=== PATIENT | female | born 1985 | race Caucasian/White ===

== ENCOUNTER → 2017-10-06 | Outpatient (CLI) | payer MEDICAID | END | disposition home or self-care (01) | LOC: U/S 17:44 | DX: O20.0 Threatened abortion (principal); Z3A.01 Less than 8 weeks gestation of pregnancy | CPT/HCPCS: 76801; 76817 ==

== ENCOUNTER 2017-10-25 14:43 | Emergency (ER) | payer MEDICAID ==
[2017-10-25] MEDS: METOCLOPRAMIDE 10 MG INJ IV (16:25)
[2017-10-25] MEDS: ACETAMINOPHEN 500 MG TAB PO (16:25)
[2017-10-25] MEDS: SOD CHLORIDE 0.9% 1,000 ML IV (16:26)
[2017-10-25 16:42] LABS: ADD MAN DIFF? NO
[2017-10-25 16:46] LABS: WHITE BLOOD COUNT 12.6 10^3/ul (4.8-10.8)
[2017-10-25 16:46] LABS: BASOPHILS % 0.3 % (0.0-2.0); EOSINOPHILS # 0.2 10^3/ul (0.0-0.5); EOSINOPHILS % 1.3 % (0.0-7.0); HEMATOCRIT 39.8 % (37.0-47.0); HEMOGLOBIN 13.4 g/dl (12.0-16.0); LYMPHOCYTES % 15.9 % (15.0-51.0); MEAN CORPUSCULAR HEMOGLOBIN 28.6 pg (29.0-33.0); MEAN CORPUSCULAR HGB CONC 33.7 g/dl (32.0-37.0); MEAN CORPUSCULAR VOLUME 84.9 fl (82.0-101.0); MEAN PLATELET VOLUME 10.6 fl (7.4-10.4); MONOCYTE # 0.9 10^3/ul (0.3-0.9); MONOCYTES % 7.1 % (0.0-11.0); NEUTROPHIL # 9.5 10^3/ul (1.6-7.5); NEUTROPHILS % 75.1 % (39.0-77.0); PLATELET COUNT 296 10^3/UL (140-415); RED BLOOD COUNT 4.69 10^6/ul (4.20-5.40); RED CELL DISTRIBUTION WIDTH 12.4 % (11.5-14.5)
[2017-10-25 17:06] LABS: ALANINE AMINOTRANSFERASE 26 IU/L (13-69); ALBUMIN 4.6 g/dl (3.3-4.9); ALBUMIN/GLOBULIN RATIO 1.12; ALKALINE PHOSPHATASE 77 IU/L (42-121); AMYLASE 85 U/L (11-123); ANION GAP 16 (8-16); ASPARTATE AMINO TRANSFERASE 18 IU/L (15-46); BILIRUBIN,INDIRECT 0.2 mg/dl (0-1.1); BILIRUBIN,TOTAL 0.2 mg/dl (0.2-1.3); BLOOD UREA NITROGEN 11 mg/dl (7-20); CALCIUM 9.8 mg/dl (8.4-10.2); CARBON DIOXIDE 27 mmol/L (21-31); CHLORIDE 100 mmol/L (97-110); CREATININE 0.55 mg/dl (0.44-1.00); GLUCOSE 100 mg/dl (70-220); LIPASE 63 U/L (23-300); SODIUM 139 mmol/L (135-144); TOTAL PROTEIN 8.7 g/dl (6.1-8.1)
[2017-10-25 17:30] LABS: ADD UMIC NO; UR ASCORBIC ACID NEGATIVE (NEGATIVE); UR BILIRUBIN (Dip) NEGATIVE (NEGATIVE); UR BLOOD (Dip) NEGATIVE (NEGATIVE); UR CLARITY CLEAR (CLEAR); UR COLOR COLORLESS (YELLOW); UR GLUCOSE (Dip) NEGATIVE (NEGATIVE); UR KETONES (Dip) NEGATIVE (NEGATIVE); UR LEUKOCYTE ESTERASE (Dip) NEGATIVE Leu/ul (NEGATIVE); UR NITRITE (Dip) NEGATIVE (NEGATIVE); UR SPECIFIC GRAVITY (Dip) 1.003 (1.003-1.030); UR TOTAL PROTEIN (Dip) NEGATIVE (NEGATIVE); UR UROBILINOGEN (Dip) NEGATIVE (NEGATIVE)
== END 2017-10-25 18:16 | disposition home or self-care (01) ==
LOC: FTE 14:43
DX: O21.0 Mild hyperemesis gravidarum (principal); R10.2 Pelvic and perineal pain; Z3A.09 9 weeks gestation of pregnancy
CPT/HCPCS: 76775; 76801; 80053; 81003; 82150; 83690; 84702; 85025; 86900; 86901; 87086; 96374; 99285-25

== ENCOUNTER 2018-02-14 10:19 | Inpatient (IN) | payer MEDICAID ==
[2018-02-14 11:16] LABS: ADD UMIC YES; UR ASCORBIC ACID NEGATIVE (NEGATIVE); UR BACTERIA FEW /HPF (NONE SEEN); UR BILIRUBIN (Dip) NEGATIVE (NEGATIVE); UR BLOOD (Dip) 2+ mg/dL (NEGATIVE); UR CLARITY CLEAR (CLEAR); UR COLOR YELLOW (YELLOW); UR GLUCOSE (Dip) NEGATIVE (NEGATIVE); UR KETONES (Dip) NEGATIVE (NEGATIVE); UR LEUKOCYTE ESTERASE (Dip) NEGATIVE Leu/ul (NEGATIVE); UR NITRITE (Dip) NEGATIVE (NEGATIVE); UR RBC 0 /HPF (0-5); UR SPECIFIC GRAVITY (Dip) 1.019 (1.003-1.030); UR SQUAMOUS EPITHELIAL CELL FEW /HPF (FEW); UR TOTAL PROTEIN (Dip) NEGATIVE (NEGATIVE); UR UROBILINOGEN (Dip) NEGATIVE (NEGATIVE); UR WBC 1 /HPF (0-5)
[2018-02-14] MEDS: LACTATED RINGER'S 1,000 ML IV ×2 (11:53→20:56)
[2018-02-14] MEDS: MAGNESIUM SULFATE 4 GM/100 ML 100 ML IV (11:59)
[2018-02-14 12:08] LABS: ADD MAN DIFF? NO
[2018-02-14 12:18] LABS: BASOPHILS % 0.1 % (0.0-2.0); EOSINOPHILS # 0.2 10^3/ul (0.0-0.5); EOSINOPHILS % 2.3 % (0.0-7.0); HEMATOCRIT 32.1 % (37.0-47.0); HEMOGLOBIN 10.5 g/dl (12.0-16.0); LYMPHOCYTES # 1.5 10^3/ul (0.8-2.9); LYMPHOCYTES % 15.7 % (15.0-51.0); MEAN CORPUSCULAR HEMOGLOBIN 27.8 pg (29.0-33.0); MEAN CORPUSCULAR HGB CONC 32.7 g/dl (32.0-37.0); MEAN CORPUSCULAR VOLUME 84.9 fl (82.0-101.0); MEAN PLATELET VOLUME 10.9 fl (7.4-10.4); MONOCYTE # 0.6 10^3/ul (0.3-0.9); MONOCYTES % 6.2 % (0.0-11.0); NEUTROPHIL # 7.3 10^3/ul (1.6-7.5); NEUTROPHILS % 75.3 % (39.0-77.0); PLATELET COUNT 292 10^3/UL (140-415); RED BLOOD COUNT 3.78 10^6/ul (4.20-5.40); RED CELL DISTRIBUTION WIDTH 13.2 % (11.5-14.5)
[2018-02-14 12:18] LABS: WHITE BLOOD COUNT 9.7 10^3/ul (4.8-10.8)
[2018-02-14] MEDS: MAGNESIUM SULFATE 20 GM/500 ML 500 ML IV ×2 (12:50→23:38)
[2018-02-14] MEDS: BETAMET NA PHOS/AC(6 MG/ML) 5ML INJ IM (12:51)
[2018-02-14 19:08] LABS: MAGNESIUM 4.5 mg/dl (1.7-2.5)
[2018-02-14 19:36] LABS: RAPID PLASMA REAGIN NONREACTIVE (NR)
[2018-02-15 00:57] LABS: MAGNESIUM 5.3 mg/dl (1.7-2.5)
[2018-02-15] MEDS: LACTATED RINGER'S 1,000 ML IV ×3 (03:23→21:38)
[2018-02-15 07:09] LABS: MAGNESIUM 5.9 mg/dl (1.7-2.5)
[2018-02-15] MEDS: FERROUS SULFATE (EC) 325 MG TAB PO (08:49)
[2018-02-15] MEDS: PRENATAL VITAMIN PO (08:49)
[2018-02-15] MEDS: MAGNESIUM SULFATE 20 GM/500 ML 500 ML IV ×2 (08:56→18:00)
[2018-02-15] MEDS: BETAMET NA PHOS/AC(6 MG/ML) 5ML INJ IM (13:05)
[2018-02-15 18:48] LABS: MAGNESIUM 5.8 mg/dl (1.7-2.5)
[2018-02-16] MEDS: LACTATED RINGER'S 1,000 ML IV ×2 (03:23→10:23)
[2018-02-16] MEDS: MAGNESIUM SULFATE 20 GM/500 ML 500 ML IV (04:19)
[2018-02-16 07:14] LABS: MAGNESIUM 6.1 mg/dl (1.7-2.5)
[2018-02-16] MEDS: PRENATAL VITAMIN PO (09:34)
[2018-02-16] MEDS: FERROUS SULFATE (EC) 325 MG TAB PO (09:34)
[2018-02-17] MEDS: FERROUS SULFATE (EC) 325 MG TAB PO (09:51)
[2018-02-17] MEDS: PRENATAL VITAMIN PO (09:51)
[2018-02-17] MEDS: BISACODYL (EC) 5 MG TAB PO (09:51)
[2018-02-17] MEDS: MAGNESIUM HYDROXIDE 30ML CUP PO (09:51)
== END 2018-02-17 13:40 | disposition home or self-care (01) | DRG 782 ==
LOC: OBT 10:19 → L-D 10:19 → OBT 11:00 → L-D 11:00 → PP1 12:34
DX: O46.92 Antepartum hemorrhage, unspecified, second trimester (principal); O47.03 False labor before 37 completed weeks of gestation, third trimester; Z3A.25 25 weeks gestation of pregnancy
CPT/HCPCS: 76815; 76817; 76818; 81001; 83735; 85025; 86592; 86850; 86900; 86901

== ENCOUNTER 2018-03-17 18:10 | Outpatient (CLI) | payer MEDICAID ==
[2018-03-17] MEDS: LACTATED RINGER'S 1,000 ML IV ×2 (19:00→21:33)
[2018-03-17 19:22] LABS: ADD UMIC NO; UR ASCORBIC ACID NEGATIVE (NEGATIVE); UR BILIRUBIN (Dip) NEGATIVE (NEGATIVE); UR BLOOD (Dip) NEGATIVE (NEGATIVE); UR CLARITY CLEAR (CLEAR); UR COLOR YELLOW (YELLOW); UR GLUCOSE (Dip) NEGATIVE (NEGATIVE); UR KETONES (Dip) NEGATIVE (NEGATIVE); UR LEUKOCYTE ESTERASE (Dip) NEGATIVE Leu/ul (NEGATIVE); UR NITRITE (Dip) NEGATIVE (NEGATIVE); UR SPECIFIC GRAVITY (Dip) 1.023 (1.003-1.030); UR TOTAL PROTEIN (Dip) NEGATIVE (NEGATIVE); UR UROBILINOGEN (Dip) 1+ mg/dL (NEGATIVE)
[2018-03-17] MEDS: TERBUTALINE 1 MG/ML INJ SC (21:49)
== END 2018-03-17 22:48 | disposition home or self-care (01) ==
LOC: OBT 18:10 → L-D 18:12 → OBT 22:48
DX: O62.9 Abnormality of forces of labor, unspecified (principal); Z3A.30 30 weeks gestation of pregnancy
CPT/HCPCS: 36415; 76815; 76817; 81003; 86850; 86900; 86901; 87086; 96360; 96361; 96372

== ENCOUNTER 2018-05-08 16:33 | Outpatient (CLI) | payer MEDICAID ==
[2018-05-08 17:01] LABS: ADD UMIC NO; UR ASCORBIC ACID 40 mg/dL (NEGATIVE); UR BACTERIA FEW /HPF (NONE SEEN); UR BILIRUBIN (Dip) NEGATIVE (NEGATIVE); UR BLOOD (Dip) NEGATIVE (NEGATIVE); UR CLARITY SLIGHTLY CLOUDY (CLEAR); UR COLOR YELLOW (YELLOW); UR GLUCOSE (Dip) NEGATIVE (NEGATIVE); UR KETONES (Dip) NEGATIVE (NEGATIVE); UR LEUKOCYTE ESTERASE (Dip) NEGATIVE Leu/ul (NEGATIVE); UR MUCUS FEW /HPF (NONE SEEN); UR NITRITE (Dip) NEGATIVE (NEGATIVE); UR RBC 0 /HPF (0-5); UR SPECIFIC GRAVITY (Dip) 1.028 (1.003-1.030); UR SQUAMOUS EPITHELIAL CELL MODERATE /HPF (FEW); UR TOTAL PROTEIN (Dip) NEGATIVE (NEGATIVE); UR UROBILINOGEN (Dip) NEGATIVE (NEGATIVE); UR WBC 2 /HPF (0-5)
[2018-05-08 17:11] LABS: ADD MAN DIFF? NO
[2018-05-08 17:15] LABS: WHITE BLOOD COUNT 9.2 10^3/ul (4.8-10.8)
[2018-05-08 17:15] LABS: BASOPHILS % 0.3 % (0.0-2.0); EOSINOPHILS # 0.1 10^3/ul (0.0-0.5); EOSINOPHILS % 0.9 % (0.0-7.0); HEMATOCRIT 34.7 % (37.0-47.0); HEMOGLOBIN 11.2 g/dl (12.0-16.0); LYMPHOCYTES # 1.6 10^3/ul (0.8-2.9); LYMPHOCYTES % 17.6 % (15.0-51.0); MEAN CORPUSCULAR HEMOGLOBIN 28.3 pg (29.0-33.0); MEAN CORPUSCULAR HGB CONC 32.3 g/dl (32.0-37.0); MEAN CORPUSCULAR VOLUME 87.6 fl (82.0-101.0); MEAN PLATELET VOLUME 11.6 fl (7.4-10.4); MONOCYTE # 0.7 10^3/ul (0.3-0.9); MONOCYTES % 7.7 % (0.0-11.0); NEUTROPHIL # 6.7 10^3/ul (1.6-7.5); PLATELET COUNT 217 10^3/UL (140-415); RED BLOOD COUNT 3.96 10^6/ul (4.20-5.40); RED CELL DISTRIBUTION WIDTH 15.2 % (11.5-14.5)
[2018-05-08 17:40] LABS: ALANINE AMINOTRANSFERASE 14 IU/L (13-69); ALBUMIN 3.4 g/dl (3.3-4.9); ALBUMIN/GLOBULIN RATIO 0.97; ALKALINE PHOSPHATASE 125 IU/L (42-121); ANION GAP 7 (5-13); ASPARTATE AMINO TRANSFERASE 22 IU/L (15-46); BILIRUBIN,INDIRECT 0.3 mg/dl (0-1.1); BILIRUBIN,TOTAL 0.3 mg/dl (0.2-1.3); BLOOD UREA NITROGEN 12 mg/dl (7-20); CALCIUM 9.2 mg/dl (8.4-10.2); CARBON DIOXIDE 21 mmol/L (21-31); CHLORIDE 108 mmol/L (97-110); CREATININE 0.41 mg/dl (0.44-1.00); Estimated GFR > 60 mL/min (>60); GLUCOSE 106 mg/dl (70-220); SODIUM 136 mmol/L (135-144); TOTAL PROTEIN 6.9 g/dl (6.1-8.1); URIC ACID 5.8 mg/dl (3.1-7.9)
[2018-05-08 17:42] LABS: INR 0.94; PARTIAL THROMBOPLASTIN TIME 27.3 Sec (23.0-35.0); PROTIME 12.7 Sec (11.9-14.9)
== END 2018-05-08 18:05 | disposition left against medical advice (07) ==
LOC: OBT 16:33 → L-D 16:34 → OBT 18:05
DX: O13.3 Gestational [pregnancy-induced] hypertension without significant proteinuria, third trimester (principal); Z3A.37 37 weeks gestation of pregnancy
CPT/HCPCS: 76818; 80053; 81001; 81003; 84560; 85025; 85610; 85730